=== PATIENT | male | born 1950 ===

== ENCOUNTER 2024-09-17 09:30 | Outpatient (REF) | payer MEDICARE, SELFPAY ==
[2024-09-17 09:58] LABS: Basophils Absolute Auto 0.02 K/uL (0.00-0.30); Basophils Percent Auto 0.4 % (0.0-3.0); Eosinophils Absolute Auto 0.16 K/uL (0.00-0.50); Hematocrit 43.5 % (37.0-53.0); Hemoglobin* 14.2 gm/dL (13.5-17.5); Immature Granulocytes Abs Auto 0.01 K/uL (0.00-0.30); Immature Granulocytes Pct Auto 0.2 %; Lymphocytes Absolute Auto 1.58 K/uL (0.90-2.90); Mean Corpuscular HGB Conc 33 gm/dL (32-36); Mean Corpuscular Hemoglobin 29 pg (26-34); Mean Corpuscular Volume 90 fL (80-100); Monocytes Percent Auto 8.4 % (0.0-11.0); Neutrophils Absolute Auto 3.05 K/uL (1.7-7.0); Platelet Count* 165 K/uL (140-440); RDW Coefficient of Variation % 12.4 % (11.5-15.5); Red Blood Count 4.86 m/uL (4.30-5.90); White Blood Count* 5.26 K/uL (4.50-11.00)
[2024-09-17 10:04] LABS: Slide Review Reflex No
[2024-09-17 10:05] LABS: Albumin* 3.8 g/dL (3.3-5.0)
[2024-09-17 10:06] LABS: Chloride* 106 mmol/L (96-114); Potassium* 4.3 mmol/L (3.6-5.1); Sodium* 138 mmol/L (135-149)
[2024-09-17 10:08] LABS: Anion Gap 6 mEq/L (7-15); Aspartate Amino Transferase* 32 U/L (12-35); Bilirubin Direct* 0.3 mg/dL (0.0-0.5); Bilirubin Total* 0.5 mg/dL (0.1-1.5); Blood Urea Nitrogen* 12 mg/dL (7-30); Carbon Dioxide* 26 mmol/L (20-32); Cholesterol* 135 mg/dL (90-199); Creatinine* 1.4 mg/dL (0.5-1.5); Estimated Glomerular Filt Rate 53 ml/min; Glucose* 96 mg/dL (60-115); Total Protein* 6.3 g/dL (6.0-8.3)
[2024-09-17 10:09] LABS: Alanine Aminotransferase* 13 U/L (4-50); Alkaline Phosphatase* 70 U/L (40-150); Calcium* 8.9 mg/dL (8.4-10.6); HDL Cholesterol* 51 mg/dL (>=40); LDL Cholesterol Calculated 67 mg/dL (<100); Triglycerides* 85 mg/dL (40-149)
[2024-09-17 10:39] LABS: PSA Diagnostic* 3.02 ng/mL (0.10-4.00)
== END 2024-09-17 09:31 | disposition home or self-care (01) ==
LOC: NPINS 09:30
PROVIDERS: PCP Family Medicine; Visit Provider Nurse Practitioner Gerontology
DX: C61 Malignant neoplasm of prostate (principal)
CPT/HCPCS: 80048; 80061; 80076; 84153; 85025

== ENCOUNTER 2025-05-03 10:39 | Outpatient (REF) | payer MEDICARE, SELFPAY ==
[2025-05-03 12:44] LABS: Hematocrit 43.7 % (37.0-53.0); Hemoglobin* 14.6 gm/dL (13.5-17.5); Immature Granulocytes Abs Auto 0.02 K/uL (0.00-0.30); Immature Granulocytes Pct Auto 0.4 %; Lymphocytes Absolute Auto 1.81 K/uL (0.90-2.90); Mean Corpuscular HGB Conc 33 gm/dL (32-36); Mean Corpuscular Hemoglobin 30 pg (26-34); Mean Corpuscular Volume 91 fL (80-100); RDW Coefficient of Variation % 13.0 % (11.5-15.5); Red Blood Count 4.82 m/uL (4.30-5.90); White Blood Count* 5.24 K/uL (4.50-11.00)
[2025-05-03 12:48] LABS: Slide Review Reflex No
[2025-05-03 13:04] LABS: Albumin* 4.1 g/dL (3.3-5.0); Chloride* 107 mmol/L (96-114); Sodium* 143 mmol/L (135-149)
[2025-05-03 13:05] LABS: Potassium* 3.7 mmol/L (3.6-5.1)
[2025-05-03 13:07] LABS: Alanine Aminotransferase* 9 U/L (4-50); Alkaline Phosphatase* 57 U/L (40-150); Anion Gap 10 mEq/L (7-15); Aspartate Amino Transferase* 19 U/L (12-35); Bilirubin Total* 0.6 mg/dL (0.1-1.5); Blood Urea Nitrogen* 16 mg/dL (7-30); Carbon Dioxide* 26 mmol/L (20-32); Creatinine* 1.6 mg/dL (0.5-1.5); Estimated Glomerular Filt Rate 45 ml/min; Total Protein* 6.6 g/dL (6.0-8.3)
[2025-05-03 13:08] LABS: Calcium* 9.5 mg/dL (8.4-10.6); Glucose* 90 mg/dL (60-115)
[2025-05-07 22:42] LABS: Zonisamide Quantitative 19 ug/mL (10-40)
== END 2025-05-03 10:40 | disposition home or self-care (01) ==
LOC: NPINS 10:39
PROVIDERS: PCP Family Medicine; Referring Provider Family Medicine; Visit Provider Family Medicine
DX: G40.909 Epilepsy, unspecified, not intractable, without status epilepticus (principal)
CPT/HCPCS: 80053; 80177; 80203; 80235; 85025

== ENCOUNTER 2025-05-31 10:46 | Outpatient (REF) | payer MEDICARE, SELFPAY ==
[2025-05-31 11:26] LABS: Cholesterol* 118 mg/dL (90-199); HDL Cholesterol* 40 mg/dL (>=40); Triglycerides* 92 mg/dL (40-149)
[2025-05-31 11:57] LABS: PSA Diagnostic* 3.50 ng/mL (0.10-4.00)
== END 2025-05-31 10:47 | disposition home or self-care (01) ==
LOC: NPINS 10:46
PROVIDERS: PCP Family Medicine; Visit Provider Nurse Practitioner Gerontology
DX: I25.10 Atherosclerotic heart disease of native coronary artery without angina pectoris (principal); N40.1 Benign prostatic hyperplasia with lower urinary tract symptoms
CPT/HCPCS: 36415; 80061; 84153

== ENCOUNTER 2025-06-21 12:59 | Outpatient (REF) | payer MEDICARE, SELFPAY | END 2025-06-21 13:00 | disposition home or self-care (01) | LOC: NPINS 12:59 | PROVIDERS: PCP Family Medicine; Visit Provider Family Medicine | DX: G40.909 Epilepsy, unspecified, not intractable, without status epilepticus (principal) | CPT/HCPCS: 80177 ==

== ENCOUNTER 2025-08-23 09:48 | Outpatient (REF) | payer MEDICARE, SELFPAY ==
[2025-08-23 10:09] LABS: Hematocrit* 46.9 % (37.0-53.0); Hemoglobin* 15.4 gm/dL (13.5-17.5); Immature Granulocytes Abs Auto 0.03 K/uL (0.00-0.30); Immature Granulocytes Pct Auto 0.4 %; Lymphocytes Absolute Auto 1.52 K/uL (0.90-2.90); Mean Corpuscular HGB Conc 33 gm/dL (32-36); Mean Corpuscular Hemoglobin 30 pg (26-34); Mean Corpuscular Volume 91 fL (80-100); RDW Coefficient of Variation % 12.6 % (11.5-15.5); Red Blood Count* 5.17 m/uL (4.30-5.90); White Blood Count* 7.01 K/uL (4.50-11.00)
[2025-08-23 10:10] LABS: Albumin* 4.5 g/dL (3.3-5.0); Chloride* 107 mmol/L (96-114); Potassium* 3.6 mmol/L (3.6-5.1); Sodium* 143 mmol/L (135-149)
[2025-08-23 10:13] LABS: Alanine Aminotransferase* 15 U/L (4-50); Alkaline Phosphatase* 68 U/L (40-150); Anion Gap 15 mEq/L (7-15); Aspartate Amino Transferase* 23 U/L (12-35); Bilirubin Total* 0.5 mg/dL (0.1-1.5); Blood Urea Nitrogen* 17 mg/dL (7-30); Calcium* 9.4 mg/dL (8.4-10.6); Carbon Dioxide* 21 mmol/L (20-32); Creatinine* 1.5 mg/dL (0.5-1.5); Estimated Glomerular Filt Rate 48 ml/min; Glucose* 121 mg/dL (60-115); Total Protein* 7.5 g/dL (6.0-8.3)
[2025-08-23 10:19] LABS: Slide Review Reflex No
== END 2025-08-23 09:49 | disposition home or self-care (01) ==
LOC: NPINS 09:48
PROVIDERS: PCP Family Medicine; Visit Provider Nurse Practitioner Adult Health
DX: R19.5 Other fecal abnormalities (principal); I10 Essential (primary) hypertension; G40.919 Epilepsy, unspecified, intractable, without status epilepticus
CPT/HCPCS: 80053; 82150; 83690; 85025

== ENCOUNTER 2025-08-30 08:51 | Outpatient (REF) | payer MEDICARE, SELFPAY ==
[2025-08-30 09:23] LABS: Hematocrit* 42.2 % (37.0-53.0); Hemoglobin* 14.0 gm/dL (13.5-17.5); Immature Granulocytes Abs Auto 0.03 K/uL (0.00-0.30); Immature Granulocytes Pct Auto 0.6 %; Lymphocytes Absolute Auto 1.53 K/uL (0.90-2.90); Mean Corpuscular HGB Conc 33 gm/dL (32-36); Mean Corpuscular Hemoglobin 30 pg (26-34); Mean Corpuscular Volume 90 fL (80-100); RDW Coefficient of Variation % 12.3 % (11.5-15.5); Red Blood Count* 4.67 m/uL (4.30-5.90); White Blood Count* 5.42 K/uL (4.50-11.00)
[2025-08-30 09:26] LABS: Slide Review Reflex No
[2025-08-30 09:35] LABS: Albumin* 3.8 g/dL (3.3-5.0); Chloride* 102 mmol/L (96-114); Potassium* 3.9 mmol/L (3.6-5.1); Sodium* 137 mmol/L (135-149)
[2025-08-30 09:37] LABS: Blood Urea Nitrogen* 13 mg/dL (7-30); Creatinine* 1.3 mg/dL (0.5-1.5); Estimated Glomerular Filt Rate 57 ml/min
[2025-08-30 09:38] LABS: Alanine Aminotransferase* 11 U/L (4-50); Alkaline Phosphatase* 53 U/L (40-150); Anion Gap 9 mEq/L (7-15); Aspartate Amino Transferase* 17 U/L (12-35); Bilirubin Total* 0.7 mg/dL (0.1-1.5); Calcium* 9.2 mg/dL (8.4-10.6); Carbon Dioxide* 26 mmol/L (20-32); Glucose* 86 mg/dL (60-115); Total Protein* 6.4 g/dL (6.0-8.3)
== END 2025-08-30 08:52 | disposition home or self-care (01) ==
LOC: NPINS 08:51
PROVIDERS: PCP Family Medicine; Visit Provider Nurse Practitioner Adult Health
DX: D64.9 Anemia, unspecified (principal); I10 Essential (primary) hypertension; R19.5 Other fecal abnormalities
CPT/HCPCS: 80053; 82150; 83690; 85025

== ENCOUNTER 2025-09-19 18:20 | Outpatient (REF) | payer MEDICARE, SELFPAY | END 2025-09-19 18:21 | disposition home or self-care (01) | LOC: NPINS 18:20 | PROVIDERS: PCP Family Medicine; Visit Provider Nurse Practitioner Adult Health | DX: R19.5 Other fecal abnormalities (principal) | CPT/HCPCS: 83789; 87045; 87046; 87427 ==

== ENCOUNTER 2025-09-20 10:00 | Outpatient (REF) | payer MEDICARE, SELFPAY ==
[2025-09-20 10:15] LABS: Albumin* 3.8 g/dL (3.3-5.0); Chloride* 106 mmol/L (96-114); Sodium* 138 mmol/L (135-149)
[2025-09-20 10:16] LABS: Potassium* 3.6 mmol/L (3.6-5.1)
[2025-09-20 10:18] LABS: Alanine Aminotransferase* 11 U/L (4-50); Alkaline Phosphatase* 61 U/L (40-150); Anion Gap 6 mEq/L (7-15); Aspartate Amino Transferase* 18 U/L (12-35); Bilirubin Total* 0.4 mg/dL (0.1-1.5); Blood Urea Nitrogen* 18 mg/dL (7-30); Calcium* 9.0 mg/dL (8.4-10.6); Carbon Dioxide* 26 mmol/L (20-32); Creatinine* 1.4 mg/dL (0.5-1.5); Estimated Glomerular Filt Rate 52 ml/min; Glucose* 97 mg/dL (60-115); Total Protein* 6.3 g/dL (6.0-8.3)
== END 2025-09-20 10:01 | disposition home or self-care (01) ==
LOC: NPINS 10:00
PROVIDERS: PCP Family Medicine; Visit Provider Nurse Practitioner Adult Health
DX: R19.5 Other fecal abnormalities (principal)
CPT/HCPCS: 80053